=== PATIENT | female | born 1950 | race Caucasian/White ===

== ENCOUNTER 2017-03-26 20:02 | Emergency (ER) | payer OTHER ==
[2017-03-26 20:09] VITALS: BP 100/71; PULSE 81; RESP 16; TEMP 97.9; O2SAT 96
--- NOTE | 2017-03-26 20:49 | EDPHY ---
H & P Smoking Status: Never smoked Time Seen by Provider: 03/26/17 20:20 HPI/ROS: CHIEF COMPLAINT: Superficial laceration HISTORY OF PRESENT ILLNESS: 66-year-old female presents to the emergency department with superficial laceration to her left 4th finger. Patient cut herself with a knife accidentally just prior to arrival at home. Patient is right-hand dominant. Denies any other trauma or injury. She was having difficulty controlling the bleeding at home and presented to the emergency department for evaluation. She believes her tetanus shot was within the last 5 years. ROS: Denies numbness or tingling in her fingers, retained foreign body or other injuries. (Deja Chen) Past Medical/Surgical History: Orthopedic surgery, depression (Deja Chen) Social History: (Deja Chen) Physical Exam: On examination the patient is a very small 0.5 cm flap laceration to the distal , palmar aspect of the left 4th finger. It does not involve the nail. It does not extend into the D IP joint. Currently there is no active bleeding noted. No palpable bony tenderness. The other fingers do not appear injured. Full range of motion of her fingers. Normal sensation to light touch. (Deja Chen) Constitutional: Initial Vital Signs Temperature (C) 36.6 C 03/26/17 20:06 Heart Rate 81 03/26/17 20:06 Respiratory Rate 16 03/26/17 20:06 Blood Pressure 100/71 03/26/17 20:06 O2 Sat (%) 96 03/26/17 20:06 O2 Delivery Mode Room Air Allergies/Adverse Reactions: No Known Allergies Allergy (Unverified 03/26/17 20:05) Home Medications: Medication Instructions Recorded Acyclovir 03/26/17 Estrogel 03/26/17 Lamotrigine 03/26/17 Seroquel 03/26/17 MDM/Departure - MDM ED Course/Re-evaluation: 66-year-old female with superficial laceration to left 4th finger. Wound is currently not bleeding. I gave the patient options of trimming the flap laceration. Patient wanted to leave the skin in place. She understands sutures are not warranted. The skin was thoroughly cleansed and Steri-Strips dressing applied. Patient was given wound care precautions. (Rosin,Deja M) The patient was evaluated and managed by the physician assistant surveyor. I have reviewed this chart and I agree with the findings and plan of care as documented , as indicated by my signature. I am the secondary supervising physician. ( Toma Gu) - Depart Disposition: Home, Routine, Self-Care Clinical Impression: Superficial laceration left 4th finger Condition: Good Instructions: Laceration (ED), Acute Wounds (ED) Additional Instructions: Keep wound dry, clean and protected. Avoid open water as discussed. Ibuprofen 400 mg as needed for pain. Referrals: Cristina Allison MD [Primary Care Provider] - As per Instructions
== END 2017-03-26 20:58 | disposition home or self-care (01) ==
DX: S61.215A Laceration without foreign body of left ring finger without damage to nail, initial encounter (principal); W26.0XXA Contact with knife, initial encounter; Y92.009 Unspecified place in unspecified non-institutional (private) residence as the place of occurrence of the external cause